=== PATIENT | female | born 1980 | race Caucasian/White ===

== ENCOUNTER 2017-06-01 15:40 | Emergency (ER) | payer OTHER ==
--- NOTE | 2017-06-01 16:49 | ED ---
Skin Complaint - HPI Summary HPI Summary: Patient presents with small nodule under the left axilla and the left groin. She notes to previous nodules in these areas, but they dissipate spontaneously without medication. She notes to left sided abdominal pain which is in the mid quadrant and only painful on deep palpation. Small abscess formation without sinus tracts and cicatrization/scarring throughout the groin. However, abscess over the arm measures 1x1 small, indurated and non-fluctuant, surrounded by scarring from previous nodules. She denies other complaints at this time. She denies previous dx of skin abscesses, hidrenitis suppurativa or MRSA. One episode of I and D in the past with good effect. Denies N/V/C/D. Denies fever , chills or sweats. Pain is 2/10, constant and non-radiating. Denies urinary sxs. - History of Current Complaint Chief Complaint: EDGeneral Time Seen by Provider: 06/01/17 15:55 Stated Complaint: PAIN/SWELLING IN LT HIP Hx Obtained From: Patient Hx Last Menstrual Period: 02/08/16 Onset/Duration: Started Hours Ago Skin Exposure Onset/Duration: Hours Ago Timing: Constant Onset Severity: Moderate Current Severity: Moderate Pain Intensity: 5 Pain Scale Used: 0-10 Numeric Skin Location: Discrete Character: Swelling, Pain, Redness Aggravating Symptom(s): Nothing Alleviating Symptom(s): Nothing Associated Signs & Symptoms: Tenderness - Allergy/Home Medications Allergies/Adverse Reactions: Allergies Allergy/AdvReac Type Severity Reaction Status Date / Time No Known Allergies Allergy Verified 10/13/15 13:05 PMH/Surg Hx/FS Hx/Imm Hx Previously Healthy: Yes Endocrine/Hematology History: Denies: Hx Anticoagulant Therapy, Hx Diabetes, Hx Thyroid Disease, Other Endocrine/Hematological Disorders Cardiovascular History: Denies: Hx Congestive Heart Failure, Hx Hypertension, Hx Pacemaker/ICD, Other Cardiovascular Problems/Disorders Respiratory History: Denies: Hx Asthma, Hx Chronic Obstructive Pulmonary Disease (COPD), Other Respiratory Problems/Disorders GI History: Denies: Hx Ulcer, Other GI Disorders History: Reports: Other Problems/Disorders - hx of uti Denies: Hx Renal Disease Musculoskeletal History: Reports: Other Musculoskeletal History - low back problems Sensory History: Denies: Other Sensory Impairments Opthamlomology History: Denies: Other Sensory Impairments Neurological History: Denies: Hx Dementia, Hx Seizures, Other Neuro Impairments/Disorders Psychiatric History: Reports: Hx Depression Denies: Hx Substance Abuse, Other Psychiatric Issues/Disorders - Surgical History Surgery Procedure, Year, and Place: cyst on ovary ,cyst on wrist; dental abcess resulted in surgery on neck Jan 2013, tubal ligation - Immunization History Hx Pertussis Vaccination: No Immunizations Up to Date: Unable to Obtain/Confirm Infectious Disease History: Denies: Hx Hepatitis, Hx Human Immunodeficiency Virus (HIV), Traveled Outside the [place] in Last 30 Days - Family History Known Family History: Positive: None - Social History Occupation: Employed Full-time Lives: With Family Alcohol Use: Occasionally Hx Substance Use: No Substance Use Type: Reports: None Hx Tobacco Use: Yes Smoking Status (MU): Current Every Day Smoker Type: Cigarettes Amount Used/How Often: LESS THAN 1/2 PPD Review of Systems Constitutional: Negative Eyes: Negative Cardiovascular: Negative Respiratory: Negative Positive: no symptoms reported, see HPI Positive: Arthralgia - chornic back pain, Myalgia Positive: Other - 2 small nodules - 1 in axilla, 1 in groin Neurological: Negative Psychological: Normal All Other Systems Reviewed And Are Negative: Yes Physical Exam Triage Information Reviewed: Yes Vital Signs On Initial Exam: Initial Vitals Temp Pulse Resp BP Pulse Ox 97 F 69 17 120/64 98 06/01/17 15:45 06/01/17 15:45 06/01/17 15:45 06/01/17 15:45 06/01/17 15:45 Vital Signs Reviewed: Yes Appearance: Positive: Well-Appearing, Well-Nourished Skin: Positive: Warm, Skin Color Reflects Adequate Perfusion Head/Face: Positive: Normal Head/Face Inspection Eyes: Positive: EOMI, YENNIFER, Conjunctiva Clear Neck: Positive: Supple, Nontender, No Lymphadenopathy Respiratory/Lung Sounds: Positive: Clear to Auscultation, Breath Sounds Present Cardiovascular: Positive: Normal, RRR, Pulses are Symmetrical in both Upper and Lower Extremities Musculoskeletal: Positive: Normal, Strength/ROM Intact Neurological: Positive: Normal, Sensory/Motor Intact, Alert, Oriented to Person Place, Time Psychiatric: Positive: Normal AVPU Assessment: Alert - Rachel Coma Scale Best Eye Response: 4 - Spontaneous Best Motor Response: 6 - Obeys Commands Best Verbal Response: 5 - Oriented Diagnostics - Vital Signs Vital Signs Temp Pulse Resp BP Pulse Ox 06/01/17 15:45 97 F 69 17 120/64 98 - Laboratory Lab Statement: Any lab studies that have been ordered have been reviewed, and results considered in the medical decision making process. Course/Dx - Course Course Of Treatment: UA shows 1+ leuks. Patient has no symptoms. Keflex given for hidrenitus suppurativa symptoms with small abscess nodules. Medications were reveiwed with patient. Encouarged to follow up with PCP or return to ED for worsening symptoms. Return precautions given. Patient understands and agrees with plan. Ok for discharge. - Differential Diagnoses - Skin Complaint Differential Diagnoses: Abscess, Local Allergic Reaction, Lymphadenitis, Lymphangitis - Diagnoses Provider Diagnoses: Hidradenitis suppurativa Discharge - Discharge Plan Condition: Stable Disposition: HOME Prescriptions: Cephalexin CAP* [Keflex CAP*] 500 mg PO QID #28 cap MDD 4 Patient Education Materials: Hidradenitis Suppurativa (ED) Additional Instructions: You have symptoms of HS. I have given you information. If you develop redness, streaks of red around the wound, swelling, abnormal drainage or you develop a fever - you need to come back to the ED right away. FINISH THE ENTIRE COURSE OF ANTIBIOTICS, EVEN IF YOU BEGIN TO FEEL BETTER! Keflex four times daily for 7 days If you develop worsening symptoms, return to the ED Images - Images Full Body (No Head): 1 - 1x3 linear nodule without abscess or fluctuance. erythema and warmth over the nodule without streaking. 2 - axilla with small 1x1 nodule non fluctuant without warmth or erythema
[2017-06-01 17:04] LABS: Urine Bacteria Absent (Absent); Urine Bilirubin Negative (Negative); Urine Glucose Negative (Negative); Urine Nitrite Negative (Negative)
[2017-06-01 18:19] VITALS: BP 106/66
== END 2017-06-01 18:20 | disposition home or self-care (01) ==
LOC: ED 15:40
DX: L73.2 Hidradenitis suppurativa (principal); R10.9 Unspecified abdominal pain; F32.9 Major depressive disorder, single episode, unspecified; F17.210 Nicotine dependence, cigarettes, uncomplicated
CPT/HCPCS: 81003; 81015; 87086; 99282

== ENCOUNTER 2017-08-23 14:36 | Emergency (ER) | payer OTHER ==
[2017-08-23] MEDS ORDERED: oxyCODONE/Acetamin 5/325 MG* TAB PO ONE ×2 (19:32→20:57)
--- NOTE | 2017-08-23 19:52 | RAD ---
HISTORY: Fall, low back pain COMPARISONS: August 05, 2017 VIEWS: 6 , Frontal, lateral, coned-down lateral sacral, and bilateral oblique views of the lumbar spine. FINDINGS: ALIGNMENT: The alignment is normal. VERTEBRAL BODIES: The vertebral body heights are normal. The interpedicular distances are normal. There is mild anterolateral marginal osteophyte formation along the lower thoracic and lumbar spine. JOINTS: The facet joints are normal. INTERVERTEBRAL DISCS: There is mild diffuse loss of intervertebral disc height. SOFT TISSUE: Unremarkable. OTHER: The pelvis is unremarkable. The lung bases are clear. IMPRESSION: MILD DEGENERATIVE CHANGES. NO ACUTE OSSEOUS INJURY TO THE LUMBAR SPINE. IF SYMPTOMS PERSIST, RECOMMEND REPEAT IMAGING
--- NOTE | 2017-08-23 20:57 | ED ---
Edgar Pastrana SooYoung, scribed for Edin Szymanski MD on 08/23/17 at 1903 . Back Pain - HPI Summary HPI Summary: A 37 y/o F presents to ED with c/o worsening, diffuse back and rib pain onset two days ago. Pt fell down the stairs two days ago, approx. 4 steps. She landed on her buttocks on concrete. Associated sx: mild pelvic pain, tailbone pain, large ecchymosis to R-side of back near midline. Pain has worsened since the initial fall. She states she has FROM, but all movement hurts. Denies hematuria , dysuria. - History of Current Complaint Chief Complaint: EDBackInjuryPain Stated Complaint: FALL/4 STAIRS Time Seen by Provider: 08/23/17 18:42 Hx Obtained From: Patient, Medical Records Hx Last Menstrual Period: 02/08/16 Onset/Duration: Lasting Days, Still Present Onset/Duration: Started Days Ago, Traumatic - fall, Still Present Timing: Constant Back Pain Location: Is Diffuse Severity Currently: Severe Pain Intensity: 8 Pain Scale Used: 0-10 Numeric Aggravating Symptom(s): Movement Associated Signs And Symptoms: Positive: Bruising - back, Other - pos: rib pain , tailbone pain, pelvic pain; neg: hematuria, dysuria - Allergies/Home Medications Allergies/Adverse Reactions: Allergies Allergy/AdvReac Type Severity Reaction Status Date / Time No Known Allergies Allergy Verified 10/13/15 13:05 PMH/Surg Hx/FS Hx/Imm Hx Previously Healthy: Yes Endocrine/Hematology History: Denies: Hx Anticoagulant Therapy, Hx Diabetes, Hx Thyroid Disease, Other Endocrine/Hematological Disorders Cardiovascular History: Denies: Hx Congestive Heart Failure, Hx Hypertension, Hx Pacemaker/ICD, Other Cardiovascular Problems/Disorders Respiratory History: Denies: Hx Asthma, Hx Chronic Obstructive Pulmonary Disease (COPD), Other Respiratory Problems/Disorders GI History: Denies: Hx Ulcer, Other GI Disorders History: Reports: Other Problems/Disorders - hx of uti Denies: Hx Renal Disease Musculoskeletal History: Reports: Other Musculoskeletal History - low back problems Sensory History: Denies: Other Sensory Impairments Opthamlomology History: Denies: Other Sensory Impairments Neurological History: Denies: Hx Dementia, Hx Seizures, Other Neuro Impairments/Disorders Psychiatric History: Reports: Hx Depression Denies: Hx Substance Abuse, Other Psychiatric Issues/Disorders - Surgical History Surgery Procedure, Year, and Place: cyst on ovary ,cyst on wrist; dental abcess resulted in surgery on neck Jan 2013, tubal ligation Infectious Disease History: Yes Infectious Disease History: Denies: Hx Hepatitis, Hx Human Immunodeficiency Virus (HIV), Traveled Outside the [place] in Last 30 Days - Family History Known Family History: Positive: Diabetes - father, Other - malignancy in mother - Social History Occupation: Unemployed Lives: Alone Alcohol Use: Occasionally Hx Substance Use: No Substance Use Type: Reports: None Hx Tobacco Use: Yes Smoking Status (MU): Current Every Day Smoker Type: Cigarettes Amount Used/How Often: LESS THAN 1/2 PPD Review of Systems Negative: Fever Negative: dysuria, hematuria Positive: Other - pos: back pain, rib pain, tailbone pain, mild pelvic pain Positive: Bruising - on back All Other Systems Reviewed And Are Negative: Yes Physical Exam Triage Information Reviewed: Yes Vital Signs On Initial Exam: Initial Vitals Temp Pulse Resp BP Pulse Ox 97.8 F 97 14 108/61 97 08/23/17 14:51 08/23/17 14:51 08/23/17 14:51 08/23/17 14:51 08/23/17 14:51 Vital Signs Reviewed: Yes Appearance: Positive: Well-Appearing, No Pain Distress Skin: Positive: Warm, Skin Color Reflects Adequate Perfusion, Dry, Other - Ecchymosis approx 10x4cm on R-side back near midline Head/Face: Positive: Normal Head/Face Inspection Eyes: Positive: EOMI, YENNIFER ENT: Positive: Normal ENT inspection Neck: Positive: Supple, Nontender Respiratory/Lung Sounds: Positive: Clear to Auscultation, Breath Sounds Present Cardiovascular: Positive: RRR Abdomen Description: Positive: Nontender, Soft Musculoskeletal: Positive: Strength/ROM Intact, Other - Pain with movement Neurological: Positive: Normal, Sensory/Motor Intact, Alert, Oriented to Person Place, Time Psychiatric: Positive: Affect/Mood Appropriate - [place] Coma Scale Coma Scale Total: 15 Diagnostics - Vital Signs Vital Signs Temp Pulse Resp BP Pulse Ox 08/23/17 17:05 70 98 08/23/17 16:32 97.4 F 88 14 115/66 98 08/23/17 14:51 97.8 F 97 14 108/61 97 - Laboratory Lab Statement: Any lab studies that have been ordered have been reviewed, and results considered in the medical decision making process. - Radiology L SPINE Xray Interpretation: No Acute Changes - IMPRESSION: MILD DEGENERATIVE CHANGES. NO ACUTE OSSEOUS INJURY TO THE LUMBAR SPINE. IF SYMPTOMS PERSIST, RECOMMEND REPEAT IMAGING. ED physician has reviewed this radiology report and agrees. Radiology Interpretation Completed By: Radiologist Re-Evaluation - Re-Evaluation 1 Re-Evaluation Time: 20:53 Change: Improved Comment: Discussing XR results with pt. Pt having decreased pain after medication. Back Pain Course/Dx - Course Course Of Treatment: A 37 y/o F presents to ED with c/o worsening, diffuse back and rib pain onset two days ago. Pt fell down the stairs two days ago, approx. 4 steps. She landed on her buttocks on concrete. Associated sx: mild pelvic pain , tailbone pain, large ecchymosis to R-side of back near midline. Pain has worsened since the initial fall. She states she has FROM, but all movement hurts. Denies hematuria, dysuria. Medications reviewed. Pt given Percocet in ED. NO NEUROLOGIC DEFICITS. PAIN IMPROVED AFTER PAIN MEDICATION. DISCUSSED X- RAY RESULTS WITH PATIENT. - Diagnoses Provider Diagnoses: Low back pain, Coccyx pain Discharge - Discharge Plan Condition: Stable Disposition: HOME Prescriptions: Ibuprofen TAB* [Motrin TAB* 600 MG] 600 mg PO Q6H PRN #30 tab PRN Reason: Pain oxyCODONE/Acetamin 5/325 MG* [Percocet 5/325 TAB*] 1 tab PO Q6H PRN #15 tab MDD 4 PRN Reason: Pain Patient Education Materials: Acute Low Back Pain (ED), Coccyx Injury (ED) Referrals: Kailash Elena, [facility] [Primary Care Provider] - Additional Instructions: FOLLOW UP WITH YOUR DOCTOR. RETURN TO THE EMERGENCY DEPARTMENT FOR ANY WORSENING OF YOUR CONDITION OR QUESTIONS OR CONCERNS. The documentation as recorded by the Edgar dawson SooYoung accurately reflects the service I personally performed and the decisions made by me, Edin Szymanski MD.
[2017-08-23 21:24] VITALS: BP 105/68
== END 2017-08-23 21:24 | disposition home or self-care (01) ==
LOC: ED 14:36
DX: M54.5 Low back pain (principal); M54.9 Dorsalgia, unspecified; R52 Pain, unspecified
CPT/HCPCS: 72110; 99283; A9270-GY

== ENCOUNTER 2018-12-25 16:52 | Emergency (ER) | payer OTHER ==
[2018-12-25] MEDS ORDERED: Ketorolac INJ* 30 MG/ML 1 ML VIAL IM ONE (21:28)
--- NOTE | 2018-12-25 22:08 | ED ---
Breast Complaint - HPI Summary HPI Summary: 38-year-old male presents with right breast pain today. States it is located around her nipple. She felt a mass. She denies any fevers or spreading redness. Denies any history of MRSA. She is not diabetic. She states she has history of painful breasts on the left side. She states she had a normal mammogram a year ago. She denies any fevers or chills. No rash. No chest pressures or shortness of breath. - Allergy/Home Medications Allergies/Adverse Reactions: Allergies Allergy/AdvReac Type Severity Reaction Status Date / Time No Known Allergies Allergy Verified 12/25/18 16:59 PMH/Surg Hx/FS Hx/Imm Hx Endocrine/Hematology History: Denies: Hx Anticoagulant Therapy, Hx Diabetes, Hx Thyroid Disease, Other Endocrine/Hematological Disorders Cardiovascular History: Denies: Hx Congestive Heart Failure, Hx Hypertension, Hx Pacemaker/ICD, Other Cardiovascular Problems/Disorders Respiratory History: Denies: Hx Asthma, Hx Chronic Obstructive Pulmonary Disease (COPD), Other Respiratory Problems/Disorders GI History: Denies: Hx Ulcer, Other GI Disorders History: Reports: Other Problems/Disorders - hx of uti Denies: Hx Renal Disease Musculoskeletal History: Reports: Other Musculoskeletal History - low back problems Sensory History: Denies: Other Sensory Impairments Opthamlomology History: Denies: Other Sensory Impairments Neurological History: Denies: Hx Dementia, Hx Seizures, Other Neuro Impairments/Disorders Psychiatric History: Reports: Hx Depression Denies: Hx Substance Abuse, Other Psychiatric Issues/Disorders - Cancer History Hx Chemotherapy: No Hx Radiation Therapy: No - Surgical History Surgery Procedure, Year, and Place: cyst on ovary ,cyst on wrist; dental abcess resulted in surgery on neck Jan 2013, tubal ligation Infectious Disease History: No Infectious Disease History: Denies: Hx Hepatitis, Hx Human Immunodeficiency Virus (HIV), Traveled Outside the [place] in Last 30 Days - Family History Known Family History: Positive: None, Diabetes - father, Other - malignancy in mother - Social History Alcohol Use: Occasionally Hx Substance Use: No Substance Use Type: Reports: None Hx Tobacco Use: Yes Smoking Status (MU): Light Every Day Tobacco Smoker Type: Cigarettes Amount Used/How Often: LESS THAN 1/2 PPD Review of Systems Negative: Fever Negative: Chest Pain Negative: Shortness Of Breath Positive: Other - right breast pain All Other Systems Reviewed And Are Negative: Yes Physical Exam Triage Information Reviewed: Yes Vital Signs On Initial Exam: Initial Vitals Temp Pulse Resp BP Pulse Ox 97.0 F 93 18 123/85 100 12/25/18 16:55 12/25/18 16:55 12/25/18 16:55 12/25/18 16:55 12/25/18 16:55 Vital Signs Reviewed: Yes Appearance: Positive: Well-Appearing Skin: Positive: Warm Head/Face: Positive: Normal Head/Face Inspection Eyes: Positive: Normal, EOMI, YENNIFER, Conjunctiva Clear ENT: Positive: Pharynx normal Respiratory/Lung Sounds: Positive: Clear to Auscultation, Breath Sounds Present , Other - tenderness over right breast, potential mass felt at 12 nipple position Cardiovascular: Positive: Normal, RRR Musculoskeletal: Positive: Normal Neurological: Positive: Normal Diagnostics - Vital Signs Vital Signs Temp Pulse Resp BP Pulse Ox 12/25/18 18:53 98.1 F 73 16 115/73 100 12/25/18 16:55 97.0 F 93 18 123/85 100 - Laboratory Lab Statement: Any lab studies that have been ordered have been reviewed, and results considered in the medical decision making process. - Ultrasound No standard instances Ultrasound Interpretation Completed By: Radiologist Summary of Ultrasound Findings: IMPRESSION: Small nodule in the right retroareolar area. Breast Pain Course/Dx - Course Course Of Treatment: 38-year-old male presents with right breast pain today. States it is located around her nipple. She felt a mass. She denies any fevers or spreading redness. Denies any history of MRSA. She is not diabetic. She states she has history of painful breasts on the left side. She states she had a normal mammogram a year ago. She denies any fevers or chills. No rash. No chest pressures or shortness of breath. On exam tenderness over right upper nipple. feel potential mass that is small on exam at 12 position near niple. Ultrasound shows a nodule. Explained likely is premenstrual syndrome. Told to take ibuprofen. Told to follow with primary to monitor the nodule. Patient understands agrees with plan. - Differential Diagnoses Differential Diagnosis/HQI/PQRI: Breast Abscess, Breast Mass, Fibrocystic Breast Disease - Diagnoses Provider Diagnoses: Breast nodule Discharge - Sign-Out/Discharge Documenting (check all that apply): Patient Departure Patient Received Moderate/Deep Sedation with Procedure: No - Discharge Plan Condition: Good Disposition: HOME Prescriptions: Ibuprofen TAB* [Motrin TAB* 600 MG] 600 mg PO Q6H PRN #30 tab PRN Reason: Pain Referrals: Sofiya Brown MD [Primary Care Provider] - Additional Instructions: Follow up with primary ice, compression Take ibuprofen every 6 hours as needed for pain Return to ED if develop any new or worsening symptoms - Billing Disposition and Condition Condition: GOOD Disposition: Home
[2018-12-26 00:50] VITALS: BP 105/78
== END 2018-12-26 00:53 | disposition home or self-care (01) ==
LOC: ED 16:52
DX: N63.0 Unspecified lump in unspecified breast (principal); N64.4 Mastodynia; F17.210 Nicotine dependence, cigarettes, uncomplicated
CPT/HCPCS: 96372; 99282; J1885

== ENCOUNTER 2019-01-24 06:40 | Day surgery (SDC) | payer OTHER ==
[~2019-01-24 06:40] MED LIST: Buffered Lidocaine 1% SYRIN* 1 ML/SYRINGE INTRADERM ONE; Dexamethasone IV* 4 MG/ML 1 ML (4 MG) IV SLOW PU ONE; Famotidine IV* 10 MG/ML 2 ML (20 mg) IV ONE; Lactated Ringers 1000 ML Bag* 1,000 ML IV SCH
[2019-01-24] MEDS ORDERED: HYDROcodone/ACETAMIN 5-325 MG* 1 TAB PO PRN (07:10)
[2019-01-24] MEDS ORDERED: fentaNYL* 50 MCG/ML 2 ML VIAL (100 MCG VIAL) IV PRN (07:10)
[2019-01-24] MEDS ORDERED: Naloxone* 0.4 MG/ML 1 ML VIAL IV PRN (07:10)
[2019-01-24] MEDS ORDERED: DiMENhydriNATE IV* 50 MG/ML VIAL IV PUSH PRN (07:10)
[2019-01-24] MEDS ORDERED: Famotidine IV* 10 MG/ML 2 ML (20 mg) ONE (08:05)
[2019-01-24] MEDS ORDERED: ceFAZolin 2 GM in NS PREMIX(*) 2 GM/100 ML BAG IVPB ONE (08:05)
[2019-01-24] MEDS ORDERED: Buffered Lidocaine 1% SYRIN* 1 ML/SYRINGE INTRADERM ONE (08:05)
[2019-01-24] MEDS ORDERED: Dexamethasone IV* 4 MG/ML 1 ML (4 MG) ONE (08:05)
[2019-01-24] MEDS ORDERED: Midazolam* 1 MG/ML 5 ML VIAL (5 MG) ONE (08:08)
[2019-01-24] MEDS ORDERED: Lidocaine 2% PF * 5 ML VIAL ONE (08:08)
[2019-01-24] MEDS ORDERED: Propofol* 10 MG/ML 20 ML BTL ONE (08:08)
[2019-01-24] MEDS ORDERED: fentaNYL* 50 MCG/ML 2 ML VIAL (100 MCG VIAL) ONE (08:08)
[2019-01-24] MEDS ORDERED: Lidocaine 2% PF* 10 ML AMP ONE (08:41)
[2019-01-24] MEDS ORDERED: Bupivacaine 0.5%* 50 ML VIAL ONE (08:41)
[2019-01-24] MEDS ORDERED: Ketorolac INJ* 30 MG/ML 1 ML VIAL ONE (09:16)
[2019-01-24] MEDS ORDERED: EPHEDrine (Pressors)* 50 MG/ML VIAL ONE (09:17)
[2019-01-24] MEDS ORDERED: oxyCODONE/Acetamin 5/325 MG* TAB ONE (11:04)
[2019-01-24] MEDS: oxyCODONE/Acetamin 5/325 MG* TAB PO PRN ×2 (11:04→11:05)
[2019-01-24 11:05] VITALS: BP 117/85
--- NOTE | 2019-01-24 21:47 | OP ---
DATE OF OPERATION: 01/24/19 - [facility] DATE OF : 78 ATTENDING SURGEON: Torrey Mead MD PERSONAL COACH: Savannah Mercedes PA-C. 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 OPERATIVE PROCEDURE: Excision anterior process. DESCRIPTION OF PROCEDURE: The patient was taken to the operating room where a 5 -cm incision was made longitudinally over the sinus tarsi. We reflected the extensor brevis muscle distally away from the anterior process of the calcaneus. The large fragment was loose and was removed with a hook osteotome. We used a small sagittal saw to smooth and round the base, and cleaned it up. The fragments were sent to Pathology. We then irrigated thoroughly closing with the skin and subcu in layers, and a compression dressing and plaster splint was applied. [id number] #: [id number] MTDD
== END 2019-01-24 11:30 | disposition home or self-care (01) ==
LOC: OR 06:40
PROVIDERS: ATTEND Orthopaedic Surgery
DX: S92.022K Displaced fracture of anterior process of left calcaneus, subsequent encounter for fracture with nonunion (principal); Z72.0 Tobacco use; F41.8 Other specified anxiety disorders; X58.XXXD Exposure to other specified factors, subsequent encounter; Y92.89 Other specified places as the place of occurrence of the external cause
CPT/HCPCS: 88304; 88311; A9270-GY; J0690; J1100; J1885; J2001; J2250; J2704; J3010

== ENCOUNTER 2019-11-22 19:10 | Emergency (ER) | payer OTHER ==
--- NOTE | 2019-11-22 20:17 | ED ---
Lower Extremity - HPI Summary HPI Summary: 39 year old female presents with left knee pain for the past couple days. She states she fell on Thursday. She has abrasion noted to the knee. She has been washing the abrasion. She is able to ambulate on it. States she is able to ambulate on the her leg. She denies any head injury. No loss consciousness. She denies blood thinners. she is not diabetic. She denies any back pain. No other injury. no previous fracture to the area. - History of Current Complaint Chief Complaint: EDExtremityLower Stated Complaint: L LEG PAIN PER PT Time Seen by Provider: 11/22/19 19:38 Hx Last Menstrual Period: 02/08/16 Pain Intensity: 8 - Allergies/Home Medications Allergies/Adverse Reactions: Allergies Allergy/AdvReac Type Severity Reaction Status Date / Time No Known Allergies Allergy Verified 11/22/19 19:20 PMH/Surg Hx/FS Hx/Imm Hx Endocrine/Hematology History: Denies: Hx Anticoagulant Therapy, Hx Diabetes, Hx Thyroid Disease, Other Endocrine/Hematological Disorders Cardiovascular History: Denies: Hx Congestive Heart Failure, Hx Hypertension, Hx Pacemaker/ICD, Other Cardiovascular Problems/Disorders Respiratory History: Denies: Hx Asthma, Hx Chronic Obstructive Pulmonary Disease (COPD), Other Respiratory Problems/Disorders GI History: Denies: Hx Ulcer, Other GI Disorders History: Reports: Other Problems/Disorders - hx of uti Denies: Hx Renal Disease Musculoskeletal History: Reports: Hx Arthritis - BILATERAL KNEE, THEY "CRACK" ALOT, Other Musculoskeletal History - low back problems Sensory History: Reports: Hx Contacts or Glasses - GLASSES Denies: Hx Hearing Aid, Other Sensory Impairments Opthamlomology History: Reports: Hx Contacts or Glasses - GLASSES Denies: Other Sensory Impairments Neurological History: Reports: Hx Migraine Denies: Hx Dementia, Hx Seizures, Other Neuro Impairments/Disorders Psychiatric History: Reports: Hx Anxiety, Hx Depression Denies: Hx Substance Abuse, Other Psychiatric Issues/Disorders - Cancer History Hx Chemotherapy: No Hx Radiation Therapy: No - Surgical History Surgery Procedure, Year, and Place: cyst on ovary ,cyst on wrist; dental abcess resulted in surgery on neck Jan 2013, tubal ligation Hx Anesthesia Reactions: No - Immunization History Immunizations Up to Date: Yes Infectious Disease History: No Infectious Disease History: Denies: Hx Hepatitis, Hx Human Immunodeficiency Virus (HIV), Traveled Outside the [place] in Last 30 Days - Family History Known Family History: Positive: None, Diabetes - father, Other - malignancy in mother - Social History Alcohol Use: Occasionally Hx Substance Use: No Substance Use Type: Reports: None Hx Tobacco Use: Yes Smoking Status (MU): Light Every Day Tobacco Smoker Type: Cigarettes Amount Used/How Often: LESS THAN 1/2 PPD Have You Smoked in the Last Year: Yes Review of Systems Negative: Fever Negative: Chest Pain Negative: Shortness Of Breath Positive: Myalgia - left knee pain All Other Systems Reviewed And Are Negative: Yes Physical Exam Triage Information Reviewed: Yes Vital Signs On Initial Exam: Initial Vitals Temp Pulse Resp BP Pulse Ox 98.1 F 93 18 145/77 95 11/22/19 19:17 11/22/19 19:17 11/22/19 19:17 11/22/19 19:17 11/22/19 19:17 Vital Signs Reviewed: Yes Appearance: Positive: Well-Appearing Skin: Positive: Warm, Dry, Other - abrasion noted to left knee with no signs of cellulitis Head/Face: Positive: Normal Head/Face Inspection Eyes: Positive: Normal, Conjunctiva Clear ENT: Positive: Pharynx normal Respiratory/Lung Sounds: Positive: Clear to Auscultation, Breath Sounds Present Cardiovascular: Positive: Normal, RRR Musculoskeletal: Positive: Strength/ROM Intact - left knee and leg, Other - tenderness left femur and patella, good pulses, sensation grossly intact Neurological: Positive: Normal Psychiatric: Positive: Normal Procedures - Sedation Patient Received Moderate/Deep Sedation with Procedure: No Diagnostics - Vital Signs Vital Signs Temp Pulse Resp BP Pulse Ox 11/22/19 19:17 98.1 F 93 18 145/77 95 - Laboratory Lab Statement: Any lab studies that have been ordered have been reviewed, and results considered in the medical decision making process. - Radiology knee Radiology Interpretation Completed By: ED Physician Summary of Radiographic Findings: no fracture Lower Extremity Course/Dx - Course Course Of Treatment: 39 year old female presents with left knee pain for the past couple days. She states she fell on Thursday. She has abrasion noted to the knee. She has been washing the abrasion. She is able to ambulate on it. States she is able to ambulate on the her leg. She denies any head injury. No loss consciousness. She denies blood thinners. she is not diabetic. She denies any back pain. No other injury. no previous fracture to the area. On exam has abrasion noted left knee. No signs of infection. Tenderness over left femur and knee. X-rays are normal. Told to ice elevate. Patient understands and agrees with the plan. - Diagnoses Differential Diagnosis/HQI/PQRI: Positive: Contusion, Fracture (Closed), Sprain , Strain Provider Diagnoses: Left leg pain Discharge ED - Sign-Out/Discharge Documenting (check all that apply): Patient Departure - Discharge Plan Condition: Good Disposition: HOME Prescriptions: Naproxen TAB* [Naprosyn 250 mg TAB*] 500 mg PO Q12H PRN #16 tab PRN Reason: Pain - Moderate Patient Education Materials: Knee Pain (ED) Referrals: Sofiya Brown MD [Primary Care Provider] - Torrey Glez MD [Medical Doctor] - Additional Instructions: keep abrasion clean Ice, elevate, Tylenol every 6 hours for pain, naproxen every 12 hours Follow up with ortho if no improvement Return to ED if develop or any new or worsening symptoms - Billing Disposition and Condition Condition: GOOD Disposition: Home
[2019-11-22] MEDS ORDERED: Naproxen TAB* 250 MG PO ONE (20:23)
[2019-11-22 20:40] VITALS: BP 143/92
== END 2019-11-22 20:25 | disposition home or self-care (01) ==
LOC: ED 19:10
DX: M79.605 Pain in left leg (principal); F17.210 Nicotine dependence, cigarettes, uncomplicated; F32.9 Major depressive disorder, single episode, unspecified; F41.9 Anxiety disorder, unspecified
CPT/HCPCS: 99282; A9270-GY

== ENCOUNTER 2024-05-25 11:02 | Inpatient (IN) ==
[2024-05-25] MEDS ORDERED: fentaNYL 100 mcg/2 ml 50 MCG/ML VIAL IV PRN (14:48)
[2024-05-25] MEDS ORDERED: Naloxone 0.4 mg VIAL 0.4 mg/ml 1 ml VIAL IV PRN (14:48)
[2024-05-25] MEDS ORDERED: Ondansetron 4 mg VIAL 2 MG/ML 2 ml VIAL IV PRN ×2 (14:48→16:23)
[2024-05-25] MEDS ORDERED: Propofol 10 MG/ML 20 ML BTL IV ONE ×2 (14:56→14:57)
[2024-05-25] MEDS ORDERED: fentaNYL 100 mcg/2 ml 50 MCG/ML VIAL IV ONE (14:56)
[2024-05-25] MEDS ORDERED: Midazolam 2 mg/2 ml VIAL 1 mg/ml 2 ml VIAL (2 mg) IV SLOW PU ONE (14:56)
[2024-05-25 15:08] LABS: Rapid COVID-19 Molecular Undetected (Undetected)
[2024-05-25 15:35] LABS: ABS Eosinophils 0.3 10^3/uL (0.0-0.5); ABS Lymphocytes 2.4 10^3/uL (1.0-4.8); ABS Monocytes 0.6 10^3/uL (0.0-0.9); ABS Neutrophils 6.3 10^3/uL (1.5-7.6); Eosinophil % 2.9 %; Hematocrit 41.7 % (35-45); Hemoglobin 14.3 g/dL (11.5-14.3); Lymphocyte % 24.9 %; Mean Corpuscular Hemoglobin 32.8 pg (27-33); Mean Corpuscular Hgb Conc 34.2 g/dL (31-36); Mean Corpuscular Volume 95.9 fL (80-97); Mean Platelet Volume 7.6 fL (7.5-11.2); Platelet Count 463 10^3/uL (150-450); Red Blood Count 4.34 10^6/uL (3.63-4.92); Red Cell Distribution Width 13.3 % (12-17); White Blood Count 9.5 10^3/uL (3.8-11.8)
[2024-05-25 15:43] LABS: INR 1.11 (0.83-1.13)
[2024-05-25] MEDS ORDERED: Bupivacaine 0.25% EPI 200,000 30 ML SDV ONE (15:54)
[2024-05-25] MEDS ORDERED: HYDROmorphone 0.5 MG/0.5 ML SYRINGE ONE (15:55)
[2024-05-25] MEDS ORDERED: Acetaminophen IV 1 GM/100ML 1,000 MG/100 ML BAG IV ONE (16:00)
[2024-05-25] MEDS ORDERED: Bacitracin OINTMENT TUBE ONE (16:00)
[2024-05-25 16:07] LABS: Albumin 4.4 g/dL (3.2-5.2); Albumin/Globulin Ratio 1.6 (1-3); C Reactive Protein 38.09 mg/L (<8.01); Creatinine, Serum 1.01 mg/dL (0.51-0.95); Globulin 2.8 g/dL (2-4); Potassium 4.4 mmol/L (3.5-5.0); Total Bilirubin 0.5 mg/dL (0.2-1.0); Total Protein 7.2 g/dL (6.4-8.9)
[2024-05-25] MEDS ORDERED: HYDROmorphone 0.5 MG/0.5 ML SYRINGE IV ONE (16:13)
[2024-05-25] MEDS ORDERED: Nystatin TOP POWDER 15 GM BTL TOPICAL PRN (16:28)
[2024-05-25] MEDS ORDERED: fentaNYL 100 mcg/2 ml 50 MCG/ML VIAL IV SLOW PU PRN (16:30)
[2024-05-25] MEDS ORDERED: Vancomycin per Pharmacy 1 EA NOTE FOLLOW UP SCH (17:00)
[2024-05-25] MEDS: Cefepime 2 GM in Dextrose 2 GM/50 ML BAG IV SCH (18:15)
[2024-05-25] MEDS: Vancomycin 1,500 MG in NS 0.9% 250 ml 250 ML IVPB ONE (20:17)
[2024-05-25] MEDS: Mupirocin 2% OINT TUBE TOPICAL SCH (22:11)
[2024-05-26] MEDS ORDERED: Lactated Ringers 1000 ml BAG 1,000 ML IV SCH (06:00)
[2024-05-26] MEDS ORDERED: Buffered Lidocaine 1% SYRIN 1 ml INTRADERM ONE (06:00)
[2024-05-26 06:10] LABS: ABS Eosinophils 0.2 10^3/uL (0.0-0.5); ABS Lymphocytes 2.2 10^3/uL (1.0-4.8); ABS Monocytes 0.5 10^3/uL (0.0-0.9); ABS Neutrophils 4.9 10^3/uL (1.5-7.6); Eosinophil % 2.9 %; Hematocrit 37.5 % (35-45); Hemoglobin 12.8 g/dL (11.5-14.3); Lymphocyte % 28.2 %; Mean Corpuscular Hemoglobin 32.6 pg (27-33); Mean Corpuscular Hgb Conc 34.1 g/dL (31-36); Mean Corpuscular Volume 95.6 fL (80-97); Mean Platelet Volume 7.7 fL (7.5-11.2); Platelet Count 403 10^3/uL (150-450); Red Blood Count 3.93 10^6/uL (3.63-4.92)
[2024-05-26 06:41] LABS: Calcium 9.1 mg/dL (8.6-10.3); Creatinine, Serum 0.77 mg/dL (0.51-0.95); Potassium 4.6 mmol/L (3.5-5.0); eGFR CKD-EPI 96.9 (>60)
[2024-05-26] MEDS: Cholecalciferol (VIT D3) 1,000 unit TAB PO SCH (08:15)
[2024-05-26] MEDS: Vancomycin 1000 MG in NS 0.9% 250 ML IVPB SCH (08:15)
[2024-05-27 07:54] LABS: Creatinine, Serum 0.65 mg/dL (0.51-0.95); Vancomycin Trough 9.2 mcg/mL; eGFR CKD-EPI 110.6 (>60)
[2024-05-27] MEDS: Vancomycin Trough Check NOTE FOLLOW UP ONE (08:02)
[2024-05-27] MEDS: HYDROmorphone 0.5 MG/0.5 ML SYRINGE IV SLOW PU PRN (14:44)
[2024-05-27] MEDS: Vancomycin 1,250 MG in NS 0.9% 250 ml 250 ML IVPB SCH (18:13)
[2024-05-28 10:40] VITALS: BP 136/118
[2024-05-30] MEDS ORDERED: Vancomycin Trough Check NOTE FOLLOW UP ONE (06:00)
== END 2024-05-28 12:05 | disposition home or self-care (01) | DRG 114 ==
LOC: ED 11:02 → OR 15:10 → SSU 15:10 → SUATTDRO 17:11
PROVIDERS: ADMIT Student in an Organized Health Care Education/Training Program; ATTEND Student in an Organized Health Care Education/Training Program